=== PATIENT | female | born 1940 ===

== ENCOUNTER 2018-04-18 14:17 | Outpatient (CLI) | payer OTHER ==
[~2018-04-18] VITALS: Ht 167.6 cm; Wt 65.8 kg
== END 2018-04-18 14:35 | disposition home or self-care (01) ==
LOC: OFIC 805 14:17
DX: R42 Dizziness and giddiness (principal); H81.13 Benign paroxysmal vertigo, bilateral; H91.8X3 Other specified hearing loss, bilateral